=== PATIENT | female | born 1980 | race American Indian/Alaskan Native ===

== ENCOUNTER 2018-08-26 18:50 | Emergency (ER) | payer SELFPAY ==
[2018-08-26] MEDS ORDERED: SOLU-Medrol IV ONE (18:56)
[2018-08-26] MEDS ORDERED: PROVENTIL IH ONE (18:56)
[2018-08-26] MEDS ORDERED: ATROVENT IH ONE (18:56)
[2018-08-26] MEDS ORDERED: PEPCID IV ONE ×2 (18:56→19:01)
[2018-08-26] MEDS ORDERED: NACL 0.9% 1000 ML 1,000 ML IV ONE (18:56)
[2018-08-26] MEDS ORDERED: NACL 0.9% 1000 ML 1,000 ML ONE (19:00)
[2018-08-26] MEDS ORDERED: SOLU-Medrol ONE (19:00)
--- NOTE | 2018-08-26 19:04 | Emergency Department Report ---
ED Allergic Reaction HPI - General Chief complaint: Allergic Reaction Stated complaint: ALLERGIC REACTION Time Seen by Provider: 08/26/18 18:56 Source: patient Mode of arrival: Ambulatory Limitations: No Limitations - History of Present Illness Initial Comments: 37-year-old female presents to ED with allergic reaction. Patient reports no history of allergic reactions in the past. Patient states she has been having URI symptoms for a couple of weeks now. Patient was seen by her PCP yesterday and given a prescription for Levaquin and prednisone. Patient picked up her medication and took one pill of each. She states 10 minutes later she began having an allergic reaction. Patient took 2 Benadryl tablets prior to arrival. Patient has swelling to face and eyes, slight wheezing, past hx of asthma. Denies difficulty swallowing. MD Complaint: allergic reaction -: This evening Exposure: unknown Symptoms: facial swelling, lip swelling, hoarseness (however, pt states voice was hoarse prior to alleric rxn due to URI). denies: difficulty swallowing, orolingual swelling, nausea, vomiting Severity: moderate Treatment Prior to Arrival: benadryl Previous Allergy History: none - Related Data Previous Rx's Medication Instructions Recorded Last Taken Type ALBUTEROL Inhaler(NF) [VENTOLIN 1 puff IH Q4HR PRN #1 inha 08/26/18 Unknown Rx Inhaler(NF)] Doxycycline [Vibramycin CAP] 100 mg PO BID #9 capsule 08/26/18 Unknown Rx EPINEPHrine [Epipen] 0.3 mg IJ ONCE PRN #1 auto.injct 08/26/18 Unknown Rx Allergies Allergy/AdvReac Type Severity Reaction Status Date / Time levofloxacin AdvReac Intermediate Angioedema Verified 08/26/18 21:54 ED Review of Systems ROS: Stated complaint: ALLERGIC REACTION Other details as noted in HPI Comment: All other systems reviewed and negative Respiratory: shortness of breath, wheezing. denies: cough Cardiovascular: denies: chest pain Gastrointestinal: denies: abdominal pain, nausea, vomiting Skin: denies: rash ED Past Medical Hx - Medications Home Medications: Home Medications Medication Instructions Recorded Confirmed Last Taken Type ALBUTEROL Inhaler(NF) [VENTOLIN 1 puff IH Q4HR PRN #1 inha 08/26/18 Unknown Rx Inhaler(NF)] Doxycycline [Vibramycin CAP] 100 mg PO BID #9 capsule 08/26/18 Unknown Rx EPINEPHrine [Epipen] 0.3 mg IJ ONCE PRN #1 auto.injct 08/26/18 Unknown Rx ED Physical Exam - General Limitations: No Limitations General appearance: alert - Head Head exam: Present: atraumatic, normocephalic - Eye Eye exam: Present: periorbital swelling (left eye swollen shut) - ENT ENT exam: Present: mucous membranes moist, other (moderate swelling to both lips; tongue normal, posterior oropharynx nml; uvula midline) - Neck Neck exam: Present: normal inspection - Respiratory Respiratory exam: Present: wheezes. Absent: respiratory distress - Cardiovascular Cardiovascular Exam: Present: regular rate, normal rhythm - GI/Abdominal GI/Abdominal exam: Present: soft. Absent: distended, tenderness - Extremities Exam Extremities exam: Present: normal inspection - Neurological Exam Neurological exam: Present: alert, oriented X3 - Psychiatric Psychiatric exam: Present: normal affect, normal mood - Skin Skin exam: Present: warm, dry, intact, normal color. Absent: rash ED Course Vital Signs 08/26/18 08/26/18 08/26/18 19:00 19:34 21:00 Temperature 98.5 F Pulse Rate 72 77 Pulse Rate [ 74 Posterior Bilateral Throughout] Respiratory 22 19 Rate Respiratory 16 Rate [Posterior Bilateral Throughout] Blood Pressure 151/101 142/88 [Right] O2 Sat by Pulse 98 100 Oximetry 08/26/18 08/26/18 08/26/18 22:15 23:03 23:34 Temperature Pulse Rate 81 75 Pulse Rate [ 81 Posterior Bilateral Throughout] Respiratory 21 22 Rate Respiratory 16 Rate [Posterior Bilateral Throughout] Blood Pressure 154/95 159/106 [Right] O2 Sat by Pulse 97 99 Oximetry ED Medical Decision Making - Radiology Data Radiology results: pending, image reviewed interpreted by me: CXR: possible right-sided infiltrate - Medical Decision Making 37-year-old female likely with allergic reaction to Levaquin or prednisone as it was her first time taking either medication. Patient presented with slight wheezing, moderate facial swelling. She received albuterol nebs, Solu-Medrol, Pepcid. Patient had chest x-ray done, possible right-sided infiltrate present. Technical difficulties right now with radiology unable to send images for interpretation. Official read pending. Patient has already been on a Z-Pack previously, which is why PCP attempted Levaquin. Patient given doxycycline 100 mg here in ED, no allergic reaction. Will give prescription for doxycycline. Advised patient follow up with PCP. Also advised patient to discontinue Levaquin and prednisone. Patient re-evaluated multiple times. Facial swelling much improved, wheezing resolved. - Differential Diagnosis allergic reaction, bronchitis, pneumonia Critical Care Time: Yes Critical care time in (mins) excluding proc time.: 60 Critical care attestation.: If time is entered above; I have spent that time in minutes in the direct care of this critically ill patient, excluding procedure time. Critical Care Time: 60 minutes ED Disposition Clinical Impression: Allergic reaction, Pneumonia Disposition: DC- TO HOME OR SELFCARE Is pt being admited?: No Condition: Stable Instructions: Anaphylaxis (ED), Community-acquired Pneumonia (ED), Antibiotic Medication Allergy (ED), Allergies (ED) Prescriptions: ALBUTEROL Inhaler(NF) [VENTOLIN Inhaler(NF)] 1 puff IH Q4HR PRN #1 inha PRN Reason: Wheezing Doxycycline [Vibramycin CAP] 100 mg PO BID #9 capsule EPINEPHrine [Epipen] 0.3 mg IJ ONCE PRN #1 auto.injct PRN Reason: Anaphylaxis Referrals: [facility] MD KASANDRA [Primary Care Provider] - 3-5 Days PRIMARY CAREMD [Referring] - 3-5 Days Forms: Work/School Release Form(ED) Time of Disposition: 23:40
[2018-08-26] MEDS ORDERED: VIBRAMYCIN PO ONE (23:10)
[2018-08-26 23:34] VITALS: BP 159/106
--- NOTE | 2018-08-27 09:19 | XRay Report ---
FINAL REPORT EXAM: XR CHEST 1V AP HISTORY: cough COMPARISON: None. TECHNIQUE: Single frontal view of the chest FINDINGS: The cardiomediastinal silhouette is normal in appearance. The lungs are clear without focal consolidation. There is no pleural effusion or pneumothorax. There is no acute soft tissue or osseous abnormality. IMPRESSION: No acute cardiopulmonary disease.
== END 2018-08-27 00:11 | disposition home or self-care (01) ==
LOC: ED 18:50
DX: T78.40XA Allergy, unspecified, initial encounter (principal); J18.9 Pneumonia, unspecified organism; X58.XXXA Exposure to other specified factors, initial encounter
CPT/HCPCS: 71045; 94644; 96374; 96375; 99291; J2930; J7030